=== PATIENT | female | born 1955 | race Caucasian/White ===

== ENCOUNTER 2020-04-25 10:20 | Outpatient (CLI) | payer BC, SELFPAY ==
--- NOTE | 2020-04-25 09:53 | DI.RAD_ITS ---
EXAM: XR HIP LT COMPLETE AP PELVIS CLINICAL HISTORY: hip pain TECHNIQUE: COMPARISON: No exams were available for comparison FINDINGS: Three views were obtained. The cartilaginous joint spaces of the hips appear fairly well maintained. There is mild acetabular spurring bilaterally superiorly. Question slight subchondral sclerosis of the acetabulum superiorly bilaterally. Femoral heads appear intact. Mild degenerative changes of S I joints noted bilaterally. IMPRESSION: Mild DJD both hips.
== END 2020-04-25 10:40 ==
PROVIDERS: PCP Family Medicine; Referring Provider Family Medicine; Visit Provider Physician Assistant
DX: M25.552 Pain in left hip (principal); M16.0 Bilateral primary osteoarthritis of hip; M53.3 Sacrococcygeal disorders, not elsewhere classified
CPT/HCPCS: 73502

== ENCOUNTER 2020-05-02 01:00 | Outpatient (CLI) | payer BC, SELFPAY ==
--- NOTE | 2020-05-02 08:15 | DI.RAD_ITS ---
EXAM: RF JOINT INJECTION FLUORO GUID CLINICAL HISTORY: L HIP INJ UNDER FLUORO, LT HIP PAIN TECHNIQUE: 2D and realtime digital imaging was performed. CONTRAST MATERIAL: Water soluble contrast was administered. COMPARISON: No exams were available for comparison FINDINGS: Fluoroscopy was provided for Dr. Dinh during the performance of a left hip injection. Please re juan ramon to the procedure report for complete details. Fluoro time: 3 seconds IMPRESSION:
--- NOTE | 2020-05-02 14:09 | OPPNE_ITS ---
Date of service: 05/02/20 Time of Service: 14:02 Procedure Note Date of procedure: 05/02/20 Procedure: Left Hip Injection with Fluoroscopic Guidance Surgeon/Proceduralist/Physician: Cameron Dinh Procedure Diagnosis: Left Hip Femoroacetabular Impingement Procedure Indications: Nora has had persistent pain of the LEFT hip and groin. Noninvasive measures have been tried. To serve as both diagnostic and therapeutic, an injection under fluoroscopy was recommended. I had discussed the risks of the procedure and the patient elected to proceed. Procedure Description: Nora was greeted in the flouroscopy room. The correct side was identified and the consent was reviewed with the patient and signed. The patient was then placed in the supine position on the fluoroscopy table. The LEFT hip was then prepped with Chloraprep. The anterolateral injection starting point was identiifed by bony landmarks and fluoroscopy. The skin and soft tissue in the tract of the injection was anesthetized with 1% Lidocaine. A spinal needle was then inserted deep into the hip joint at the level of the lateral femoral neck under fl uoroscopic guidance. A small amount of Omnipaque solution was injected to confirm intraarticular placement. Once confirmed, the hip was injected with 6cc of 0.5% Bupivicaine and 80mg of Depo-Medrol. A bandaid was placed on the injection site. The patient tolerated the procedure well.
[2020-05-02] MEDS: Bupivacaine 0.5% Pres-Free 10 ML VIAL 6 ML IJ (14:37)
[2020-05-02] MEDS: Omnipaque 300 MG/ML 10 ML BTL IJ (14:37)
[2020-05-02] MEDS: methylPREDNISolone ACETATE 80 MG/ML VIAL IM (14:38)
== END 2020-05-02 01:20 ==
PROVIDERS: PCP Family Medicine; Visit Provider Student in an Organized Health Care Education/Training Program
DX: M25.552 Pain in left hip (principal); M25.852 Other specified joint disorders, left hip
CPT/HCPCS: 20610; 77002; J1040

== ENCOUNTER 2021-05-09 11:04 | Emergency (ER) | payer MEDICARE, OTHER, SELFPAY ==
[2021-05-09 11:13] VITALS: BP 122/65; PULSE 84; RESP 18; O2SAT 98
--- NOTE | 2021-05-09 11:36 | W.ED.GENAD ---
Discharge Plan Disposition Patient Disposition: HOME Condition: Good Discharge Details Clinical Impression: Acute lumbar radiculopathy Primary Care Provider: Brenda Hoang ED Provider: Alsisa Solis Home Meds and New Rx's Prescriptions: New gabapentin [Neurontin] 100 mg capsule 100 mg PO TID Qty: 90 RF: 0 cyclobenzaprine 10 mg tablet 10 mg PO TID PRNQty: 20 RF: 0 oxycodone 5 mg tablet 5 mg PO Q6H PRNQty: 10 RF: 0 No Action multivitamin Tablet 1 tab PO DAILY RF: 0 Discharge Instructions Additional Instructions: Flexeril as needed for muscle pain neurontin for radiating symptoms motrin 400 mg every 8 hours with food oxydone sparingly this medication is addictive, do not drive while taking this medication return earlier with worsening pain, fever, changes in bowel/bladder, strength changes to extremities see your doctor next week with new or worsening complaints Stand Alone Forms: Physical Therapy Referral Discharge Data Discharge Date/Time-TO BE ENTERED AT DEPARTURE: 05/09/21 15:19 Medical Decision Making No clinical evidence of cauda equina syndrome, MRI with L4-5 disc herniation, consistent with exam, given persistent pain, case discussed with Dr. Grewal at [facility], as patient had worsening symptoms with prednisone, no additional steroid administration We will attempt minimum, small course of oxycodone, consent obtained, with discussed Patient ambulatory steady gait, reports significant improvement after morphine administration Will refer to therapy after discussion with neurosurgery We will follow up with primary care physician Patient lives in [place] currently but is from [place] and will follow up with her doctor in [place], she does her referral to [facility] neurosurgery, she is instructed to keep this appointment MRI findings were reviewed, case discussed with Dr. Green, radiologist without evidence of cauda equina syndrome, no urinary symptoms, ambulatory with antalgic although safe and steady gait, discharged home in care of Return precautions discussed and patient expressed understanding No evidence of discitis or epidural abscess on MRI imaging No indication for diagnostic labs, patient afebrile nontoxic Medical Records Medical records reviewed: Yes I reviewed the patient's medical records. HPI General Mode of arrival: ambulatory. Date/Time Provider Initiated Documentation: 05/09/21 11:15. Limitations to Documentation: no limitations. Information obtained by: patient. HPI Narrative: This otherwise healthy 66-year-old female presents with lower back pain with radiation down left leg persistent for the past 2 weeks. Finished a 7-day course of steroids a week ago without relief in fact she states her pain worsened. She describes the cramping type pain in her entire left lower leg with paresthesia. Denies any changes in bowel or bladder. Denies any fever or chills. Denies history of IV drug abuse. Denies any germinoma. States she came in today secondary to worsening pain and paresthesias. States there is no comfortable position for. She states that walking makes her symptoms worse. She has a states that rest exacerbates her symptoms. She denies any abdominal pain, chest pain, shortness of breath. She is moving her bowels without difficulty. She denies any urinary complaints. She describes the pain as sharp and radiating from Related Data Home Medications Medication Instructions Recorded Confirmed multivitamin 1 tab PO DAILY 04/25/20 05/09/21 cyclobenzaprine 10 mg PO TID PRN #20 tab 05/09/21 gabapentin [Neurontin] 100 mg PO TID #90 cap 05/09/21 oxycodone 5 mg PO Q6H PRN #10 tab 05/09/21 Previous Rx's Medication Instructions Recorded cyclobenzaprine 10 mg PO TID PRN #20 tab 05/09/21 gabapentin [Neurontin] 100 mg PO TID #90 cap 05/09/21 oxycodone 5 mg PO Q6H PRN #10 tab 05/09/21 Allergies Allergy/AdvReac Type Severity Reaction Status Date / Time No Known Allergies Allergy Verified 05/09/21 11:19 General Stated Complaint: Nk/Back Pain TALI: 4 Review of Systems All systems reviewed & are unremarkable except as noted in HPI and below PFSH Social History Smoking risk assessment performed?: No Exam Const General: cooperative and acute distress Eyes Sclera: sclerae normal Chest Chest: normal inspection of the chest Resp Effort & Inspection: normal respiratory effort Cardio Rate: regular rate GI Other: no Abdominal bruit or pulsatile mass, no CVA tenderness Back/Spine/Pelvis Other: Tenderness with palpation to left groin, no tenderness over sciatic notch, paraspinal tenderness adjacent to L4-L5 and SI Skin General skin exam: no rashes or lesions noted Neuro General: patient alert Speech: speech normal Gait: antalgic Motor: strength 5/5 throughout Other: DTRs intact bilateral lower extremities, negative straight leg raise, mildly diminished sensation to lateral calf and lateral foot, neurovascularly intact Extrem Other: No calf tenderness or swelling appreciated Course Vital Signs Vital signs: Vital Signs Pulse 84 05/09/21 11:13 Respiratory Rate 18 05/09/21 11:13 Blood Pressure 122/65 05/09/21 11:13 Pulse Oximetry 98 05/09/21 11:13 Pulse 84 05/09/21 11:13 Respiratory Rate 18 05/09/21 11:13 Respiratory Effort Non-Labored 05/09/21 11:19 Blood Pressure 122/65 05/09/21 11:13 Blood Pressure Position Sitting 05/09/21 11:13 Pulse Oximetry 98 05/09/21 11:13 Oxygen Delivery Method Room Air 05/09/21 11:13 Oxygen Flow Rate 0 05/09/21 11:13 Pain Level 10 05/09/21 11:13
[2021-05-09] MEDS: MORPHine 10 MG/ML VIAL 6 MG IM (11:45)
--- NOTE | 2021-05-09 12:35 | DI.MRI_ITS ---
Exam(s) MR LUMBAR SPINE WO EXAM: MR LUMBAR SPINE WO CLINICAL HISTORY: numbness to LLE, radiation to LLE from lspine. TECHNIQUE: Multiplanar multisequence MRI of the Lumbar spine was performed. COMPARISON: CR XR HIP LT COMPLETE AP PELVIS from 04/25/2020 FINDINGS: Bones: The last intervertebral disc space is designated the L5/S1 level for the numbering purpose of this examination. The vertebral body heights are well maintained. Mild degenerative scoliosis.. Th e marrow signal characteristics are unremarkable. Cord: The conus tip ends at the T12 L1 level. It is of normal size and signal intensity. T12-L1: No disc herniations or bulges are present. L1-2: Moderate loss of disc height. Mild concentric disc bulging. L2-3: Mild disc bulging. Mild ligamentous hypertrophy. L3-4: Mild disc bulging. Mild ligamentous hypertrophy. Mild central canal stenosis. L4-5: Mild concentric disc bulging. Small focal left foraminal disc protrusion with impingement on the exiting nerve root. Facet degenerative changes and ligamentous hypertrophy cause slight spondylo listhesis. No spondylolysis. L5-S1: Moderate to severe loss of disc height. Small endplate osteophytes. Mild concentric disc bu lging. Mild left neural foraminal narrowing. Soft tissues: The visualized SI joints and sacrum are well maintained. The paraspinal soft tissues ar e unremarkable. IMPRESSION: Small left-sided foraminal disc protrusion causing nerve root impingement at L4-5.. DATA REPOSITORY:
--- NOTE | 2021-05-09 13:57 | NUR.NOTE ---
pt ambulatory to bathroom without difficulty. states minimal pain at this point. awaiting disposition:
[2021-05-09 14:00] VITALS: BP 130/58; PULSE 60; RESP 18; TEMP 36.1; O2SAT 99
[2021-05-09 14:26] VITALS: BP 118/69; PULSE 90; RESP 19; O2SAT 95
--- NOTE | 2021-05-09 14:26 | NUR.NOTE ---
pt awake at this time. states i came in here and no one has seen me, i want to go home. discussed with pt she has been sleeping. Dr Jhoan Baker will be in to talk with patient.:
== END 2021-05-09 15:19 | disposition home or self-care (01) ==
PROVIDERS: Emergency Provider Physician Assistant; PCP Family Medicine
DX: M51.16 Intervertebral disc disorders with radiculopathy, lumbar region (principal); R20.2 Paresthesia of skin
CPT/HCPCS: 96372; 99284; 72148; J2270